=== PATIENT | female | born 1995 | race Caucasian/White ===

== ENCOUNTER 2023-04-14 21:28 | Outpatient (REF) | payer OTHER, SELFPAY ==
[2023-04-22 07:12] LABS: Age Gdln ACOG Testing Note (.); HPV Aptima Negative (Negative); IGP, rfx Aptima HPV ASCU Note (.)
== END 2023-04-14 21:29 | disposition home or self-care (01) ==
LOC: LAB 21:28
PROVIDERS: PCP Internal Medicine; Visit Provider Obstetrics & Gynecology
DX: Z01.419 Encounter for gynecological examination (general) (routine) without abnormal findings (principal)
CPT/HCPCS: G0145

== ENCOUNTER 2023-12-06 02:15 | Emergency (ER) | payer OTHER, SELFPAY ==
[2023-12-06 05:59] LABS: Internal Control Within Normal Limits; Strep A Antigen Screen Negative
== END 2023-12-06 03:45 | disposition home or self-care (01) ==
LOC: ER 05:44
PROVIDERS: Emergency Provider Internal Medicine; PCP Internal Medicine
DX: J02.9 Acute pharyngitis, unspecified (principal)
CPT/HCPCS: 87070; 87880; 99283

== ENCOUNTER 2024-04-19 20:07 | Outpatient (REF) | payer OTHER, SELFPAY ==
[2024-04-22 14:10] LABS: Age Gdln ACOG Testing Note (.); IGP, rfx Aptima HPV ASCU Note (.)
== END 2024-04-19 20:08 | disposition home or self-care (01) ==
LOC: LAB 20:07
PROVIDERS: PCP Internal Medicine; Visit Provider Obstetrics & Gynecology
DX: Z01.419 Encounter for gynecological examination (general) (routine) without abnormal findings (principal)
CPT/HCPCS: 88175

== ENCOUNTER 2025-04-27 14:46 | Outpatient (REF) | payer OTHER, SELFPAY ==
--- OUTSIDE RECORDS SUMMARY | 2025-04-27 18:54 | XMS_ITS | CCD ---
Author Organization [facility] Care Team Providers Care Plugger Name Role Phone FAWWAD, STEWART H Admitting Unavailable FAWWAD, STEWART H Attending Unavailable FAWWAD, STEWART H Primary Care Unavailable FAWWAD, STEWART H Consulting Unavailable FAWWAD, STEWART H Primary Care Unavailable VANDANA .EDOUARD Admitting Unavailable VANDANA .EDOUARD Attending Unavailable BILLIE ., DESIREE JUAREZ Consulting Unavailabl e CHRISTI ., DR GOETZ Admitting Unavailable CHRISTI ., DR GOETZ Attending Unavailable FAWWAD, STEWART H Primary Care Unavailable CHRISTI ., DR GOETZ Consulting Unavailable FAWWAD, STEWART H Admitting Unavailable FAWWAD, STEWART H Attending Unavailable FAWWAD, STEWART H Primary Care Unavailable FAWWAD, STEWART H Consulting Unavailable FAWWAD, STEWART H Admitting Unavailable FAWWAD, STEWART H Attending Unavailable FAWWAD, STEWART H Primary Care Unavailable FAWWAD, STEWART H Consulting Unavailable Fawwad Shaikh FELIX Primary Care Provider ALECIA WARREN Attending Unavailable BISHNU BARRAZA Attending Unavailable Shaikh Vazquez MD Primary Care Provider NIKKY PEDERSEN Attending Unavailable JADASHANICE R Referring Unavailable JADA, SHANICE R Primary Care Unavailable JADA, SHANICE R Primary Care Unavailable OSIRIS VOGEL Attending Unavailable JADA, SHANICE R Primary Care Unavailable NIKKY PEDERSEN Attending Unavailable JADA, SHANICE R Referring Unavailable JADA, SHANICE R Primary Care Unavailable Kelly FELIX, Kaushik Unavailable Unallocated , Noms Provider Primary Care Provi natty Allergies Allergy Classification Reported Allergen(s) Allergy Type Date of Onset Reaction(s) Facility (1 source) lloyd allergenic extract Drug Allergy [facility] Repository Medications Current Medications Medication Drug Class(es) Dates Sig (Normalized) Sig (Original) [id number] 200 actuat albuterol 0.09 mg/actuat metered dose inhaler (13 sources) beta2-Adrenergic Agonist Start: 11-10-2024 take 1 puff(s) by inhalation every four to six hours as needed Albuterol Sulfate 90 mcg/actuation HFA aerosol inhaler Active 2 PUFF INHALATION EVERY 4-6 HOURS as needed November 10, 2024 12:00am Start: 10-09-2023 End: 11-08-2023 take 2 puff(s) by inhalation every six hours for wheezing albuterol HFA 90 mcg/act inhaler Indications: Mild persistent asthma, unspecified whether complicated (HCC) Inhale 2 puffs every 6 (six) hours if needed for wheezing 18 g 1 10/09/2023 Active End: 10-09-2023 take 2 puff(s) by inhalation every four hours for wheezing albuterol HFA 90 mcg/act inhaler Inhale 2 puffs every 4 (four) hours if needed for wheezing 0 10/09/2023 Discontinued (Reorder) amoxicillin 875 mg / clavulanate 125 mg oral tablet (1 source) Penicillin-class Antibacterial Start: 11-10-2024 take 1 tablet by mouth every twelve hours Amoxicillin-Pot Clavulanate 875-125 mg tablet Active 1 TAB PO Every 12 hours 20 10 November 10, 2024 12:00am benzonatate 100 mg oral capsule (2 sources) Non-narcotic Antitussive Start: 10-09-2023 End: 10-16-2023 take 1 capsule by mouth three times daily as needed for cough benzonatate (Tessalon Perles) 100 MG capsule Indications: Subacute cough Take 1 capsule (100 mg) by mouth 3 (three) times a day as needed for cough for up to 7 days Take with full glass of water . Do not crush or chew. 21 capsule 0 10/09/2023 10/16/2023 Active copper 313 mg drug implant (10 sources) Copper-containing Intrauterine Device copper (Paragard) IUD 1 each by Intrauterine route 1 (one) time. Active drospirenone 3 mg / ethinyl estradiol 0.03 mg oral tablet (12 sources) Progestin, Estrogen Start: 04-27-2025 End: 07-26-2025 drospirenone-ethinyl estradiol (Ailin, Ocella) 3-0.03 MG tablet Indications: Well woman exam with routine gynecological exam , control counseling Take 1 tablet by mouth Daily 90 tablet 3 04/27/2025 07/26/2025 Active Start: 10-09-2022 drospirenone-e thinyl estradiol (Ailin, Ocella) 3-0.03 MG tablet Take 1 tablet by mouth in the morning. 10/09/2022 Active fluticasone propionate 0.05 mg/actuat metered dose nasal spray (10 sources) Corticosteroid take 2 spray(s) nasal route in the morning fluticasone (Flonase) 50 MCG/ACT nasal spray Administer 2 sprays into each nostril in the morning. Shake gently. Before first use, prime pump. After use, clean tip and replace cap.. Active hydrOXYzine pamoate 25 mg oral capsule (11 sources) Antihistamine Start : 09-26 take 1 capsule by mouth three times daily as needed hydrOXYzine pamoate (Vistaril) 25 MG capsule Take 25 mg by mouth 3 (three) times a day as needed. 09/26/2022 Active lamoTRIgine 200 mg oral tablet (11 sources) Mood Stabilizer, Anti-epileptic Agent Start : 04-02 take 1 tablet by mouth in the morning lamoTRIgine (LaMICtal) 200 MG tablet Take 200 mg by mouth in the morning. 04/02/2023 Active methylPREDNISolone (2 sources) Corticosteroid Start : 10-09 End: 10-16 methylPREDNISolone (Medrol Dospak) 4 MG tablets Indications: Mild persistent asthma, unspecified whether complicated (CMS/HCC) Take with food. Follow schedule on package instructions 21 tablet 0 10/09/2023 10/16/2023 Active 24 hr QUEtiapine 200 mg extended release oral tablet (11 sources) Atypical Antipsychotic Start : 11-10 take 1 tablet by mouth once daily Quetiapine 200 mg tablet extended release 24 hr Active 200 MG PO Daily November 10, 2024 12:00am Start: 04-02-2023 take 1 tablet by magdy th every twenty-four hours at bedtime QUEtiapine XR (SEROquel XR) 200 MG 24 hr tablet Take 200 mg by mouth at bedtime. 04/02/2023 Active sertraline 100 mg oral tablet (11 sources) Serotonin Reuptake Inhibitor Start: 04-02-2023 take 1 tablet by mouth in the morning sertraline (Zoloft) 100 MG tablet Take 100 mg by mouth in the morning. 04/02/2023 Active Problems Active Problems Problem Classification Problem Date Documented Da te Episodic/Chronic Abdominal pain (2 sources) Pain in female pelvis; Translations: [Pelvic and perineal pain] 04-27-2025 Episodic Anxiety disorders (16 sources) Other specified anxiety disorders; Translations: [Mixed anxiety and depressive disorder] Onset: 12-26-2021 Chronic Asthma (17 sources) Mild persistent asthma, uncomplicated; Translations: [Mild persistent asthma] Onset: 01-17-2022 Chronic Contraceptive and procreative management (2 sources) Patient encounter status; Translations: [Encounter for other general counseling and advice on contraception] 04-27-2025 Episodic Mood disorders (13 sources) Bipolar II disorder; Translations: [Bipolar II disorder] Onset: 12-27-2021 10-09-2023 Chronic Other lower respiratory disease (9 sources) Cough; Translations: [Subacute cough] Onset: 10-09-2023 10-09-2023 Episodic Other nutritional; endocrine; and metabolic disorders (12 sources) Body mass index 30+ - obesity; Translations: [Obesity, unspecified] Onset: 10-09-2023 10-09-2023 Chronic Other upper respiratory infections (7 sources) Acute pharyngitis, unspecified; Translations: [Streptococcal pharyngitis] Onset: 11-14-2022 Episodic Unclassified (1 source) Cough, unspecified; Translations: [Cough, unspecified] Onset: 12-04-2024 Unclassified (1 source) Medical Screening Onset: 09-01-2024 Unclassified (1 source) Infection Onset: 09-01-2024 Past or Other Problems Problem Classification Problem Date Documented Date Episodic/Chronic Cancer of cervix (10 sources) Low grade squamous intraepithelial lesion on cervical Papanicolaou smear; Translations: [Low grade squamous intraepithelial lesion on cytologic smear of cervix (LGSIL)] Onset: 10-09-2023 10-09-2023 Episodic Cardiac dysrhythmias (4 sources) Tachycardia, unspecified; Translations: [TACHYCARDIA UNSPECIFIED] Onset: 03-28-2022 Episodic Immunizations and screening for infectious disease (1 source) Encounter for screening for human papillomavirus (HPV); Translations: [ENC SCREENING HUMAN PAPILLOMAVIRUS] Onset: 04-09-2022 Episodic Other lower respiratory disease (3 sources) Cough; Translations: [Subacute cough] Onset: 10-09-2023 10-09-2023 Episodic Other screening for suspected conditions (not mental disorders or infectious disease) (4 sources) Encounter for screening for malignant neoplasm of cervix; Translations: [ENC SCREENING MALIG NEOPLASM CERV] Onset: 04-08-2022 Episodic Ovarian cyst (1 source) Unspecified ovarian cyst, right side; Translations: [Unspecified ovarian cyst, right side] Onset: 09-01-2024 Episodic Residual codes; unclassified (10 sources) Insomnia; Translations: [Insomnia, unspecified] Onset: 10-09-2023 10-09-2023 Episodic Skin and subcutaneous tissue infections (1 source) Cellulitis of umbilicus; Translations: [Cellulitis of umbilicus] Onset: 09-01-2024 Episodic Results Test Name Value Interpretation Reference Range Facility RESP [id number] 12-04-2024 Respiratory pathogens DNA and RNA panel KINGSLEY+non-probe (Nph) SPECIMEN SOURCE NASO PHARYNX ADENOVIRUS Not detected (qualifier value) CORONAVIRUS 229E Not detected (qualifier value) CORONAVIRUS HKU1 Not detected (qualifier value) CORONAVIRUS NL63 Not detected (qualifier value) CORONAVIRUS OC43 Not detected (qualifier value) HUMAN METAPNEUVIRUS Not detected (qualifier value) RHINO/ENTEROVIRUS Not detected (qualifier value) INFLUENZA A Not detected (qualifier value) INFLUENZA B Not detected (qualifier value) PARAINFLUENZA 1 Not detected (qualifier value) PARAINFLUENZA 2 Not detected (qualifier value) PARAINFLUENZA 3 Not detected (qualifier value) PARAINFLUENZA 4 Not detected (qualifier value) RESP SYNCYTIAL VIRUS Detected (qualifier value) BORD PARAPERTUSSIS Not detected (qualifier value) BORDETELLA PERTUSSIS Not detected (qualifier value) CHLAM.PNEUMONIAE Not detected (qualifier value) MYCO. PNEUMONIAE Not detected (qualifier value) SARS CoV 2 Not detected (qualifier value) NOTE The BioFire Respiratory Panel 2.1 (RP2.1) is a multiplexed nucleic acid test intended for the simultaneous qualitative detection and differentiation of nucleic acid from multiple viral and bacterial respiratory organisms, including nucleic acid from Severe Acute Respiratory Syndrome Coronavirus 2 (SARS-CoV-2), in nasopharyngeal swabs obtained from individuals suspected of COVID-19 by their healthcare provider. Testing is limited to laboratories certified under the Clinical Laboratory Improvement Amendments of 1988 (CLIA), to perform high complexity or moderate complexity tests. SARS-CoV-2 RNA and nucleic acids from the other respiratory viral and bacterial organisms identified by this test are generally detectable in nasopharyngeal swabs during the acute phase of infection. The detection and identification of specific viral and bacterial nucleic acids from individuals exhibiting signs and/or symptoms of respiratory infection is indicative of the presence of the identified microorganism and aids in the diagnosis of respiratory infection if used in conjunction with other clinical and epidemiological information. Positive results are indicative of the presence of the identified organism, but do not rule out co-infection with other pathogens. The agent(s) detected by the BioFire RP2.1 may not be the definite cause of disease and clinical correlation with patient history and other diagnostic information is necessary to determine patient infection status. Negative results in the setting of a respiratory illness may be due to infection with pathogens not detected by this test, or lower respiratory tract infection that may not be detected by a nasopharyngeal specimen. Negative results do not preclude SARS-CoV-2 infection and should not be used as the sole basis for patient management decisions. Negative FRIDA-CoV-2 results must be combined with clinical observations, patient history and epidemiological information. Negative results for other organisms identified by the test may require additional laboratory testing when evaluating a patient with possible respiratory tract infection. Normal [facility] Comment on above: Performed By: #### 8 2159-5 #### [facility] ([id number]) [address] [facility], [place] [address] [facility] ([id number]) [address] [place] [address] XR CHEST 2 Son 12-04-2024 XR CHEST 2 VWS XR CHEST 2 VWS XR CHEST 2 VWS 12/04/2024 6:08 PM INDICATION: cough, chest pain, smoker COMPARISON: X-ray chest 01/17/2024 TECHNIQUE: PA upright and lateral radiographic view(s) obtained. FINDINGS: Lines/Tubes/Devices: None. Respiratory: No pneumothorax, pleural effusion, or focal consolidation. Cardiomediastinum: Nonenlarged silhouette. IMPRESSION: * No acute pulmonary process. Approved by Resident: Noel Winters MD on 12/04/2024 6:17 PM I, Broderick Cerda MD have personally reviewed the image(s) and agree with and/or edited the report Finalized by Broderick Cerda MD on 12/04/2024 6:19 PM Normal [facility] CBC AND AUTO DIFFon 09-01-19 ABSOLUTE BASOPHIL 0.1 X10E9/L Normal 0.0-0.2 [facility] Comment on above: Performed By: #### Mariama ARENAS [facility], 1987-12 #### [facility] ([id number]) [address] [place] [address] 34784 ABSOLUTE NEUTROPHIL 7.6 X10E9/L High 1.5-6.6 [facility] Comment on above: Performed By: #### Mariama ARENAS [facility], 1987-12 #### [facility] ([id number]) [address] [place] [address] 83133 Basophils/100 WBC (Bld) 0.8 % Normal [facility] Comment on above: Performed By: #### Mariama ARENAS [facility], 1987-12 #### [facility] ([id number]) [address] [place] [address] 86632 Eosinophils (Bld) [#/Vol] 0.2 10*3/uL Normal 0.0-0.4 [facility] Comment on above: Performed By: #### Mariama ARENAS [facility], 1986-12 #### [facility] ([id number]) [address] [place] [address] 22360 Eosinophils/100 WBC (Bld) 1.5 % Normal [facility] Comment on above: Performed By: #### Mariama ARENAS [facility], 1986-12 #### [facility] ([id number]) [address] [place] [address] 44556 Erythrocyte distribution width (RBC) [Ratio] 14.3 % Normal 11.5-15.0 [facility] Comment on above: Performed By: #### Mariama ARENAS [facility], 1987-12 #### [facility] ([id number]) [address] [place] [address] 04774 Hematocrit (Bld) [Volume fraction] 39.0 % Normal 35-47 [facility] Comment on above: Performed By: #### Mariama ARENAS [facility], 1987-12 #### [facility] ([id number]) [address] [place] [address] 19680 Hemoglobin (Bld) [Mass/Vol] 13.1 g/dL Normal 11.7-15.5 [facility] Comment on above: Performed By: #### Mariama ARENAS [facility], 1987-12 #### [facility] ([id number]) [address] [place] [address] 95933 Lymphocytes (Bld) [#/Vol] 3.0 10*3/uL Normal 1.0-3.5 [facility] Comment on above: Performed By: #### Mariama ARENAS [facility], 1987-12 #### [facility] ([id number]) [address] [place] [address] 93684 Lymphocytes/100 WBC (Bld) 25.8 % Normal [facility] Comment on above: Performed By: #### Mariama ARENAS [facility], 1987-12 #### [facility] ([id number]) [address] [place] [address] 80651 MCH (RBC) [Entitic mass] 27.3 pg Normal 27-34 [facility] Comment on above: Performed By: #### Mariama [facility]NAS [facility], 1987-12 #### [facility] ([id number]) [address] [place] [address] 02079 MCHC (RBC) [Mass/Vol] 33.6 g/dL Normal 32-36 [facility] Comment on above: Performed By: #### Mariama ARENAS [facility], 1987-12 #### [facility] ([id number]) [address] [place] [address] 54704 MCV (RBC) [Entitic vol] 81 fL Normal 80-100 [facility] Comment on above: Performed By: #### Mariama [facility]NAS [facility], 1987-12 #### [facility] ([id number]) [address] [place] [address] 57654 Monocytes (Bld) [#/Vol] 0.7 10*3/uL Normal 0-0.9 [facility] Comment on above: Performed By: #### Mariama ARENAS [facility], 1987-12 #### [facility] ([id number]) [address] [place] [address] 25510 Monocytes/100 WBC (Bld) 6.1 % Normal [facility] Comment on above: Performed By: #### Mariama [facility]NAS [facility], 1987-12 #### [facility] ([id number]) [address] [place] [address] 63988 Neutrophils/100 WBC (Bld) 65.8 % Normal [facility] Comment on above: Performed By: #### Mariama [facility]NAS [facility], 1987-12 #### [facility] ([id number]) [address] [place] [address] 47002 Platelet mean volume (Bld) [Entitic vol] 9.4 fL Normal 7-12 [facility] Comment on above: Performed By: #### Mariama [facility]NAS [facility], 1987-12 #### [facility] ([id number]) [address] [place] [address] 32904 Platelets (Bld) [#/Vol] 311 10*3/uL Normal 150-450 [facility] Comment on above: Performed By: #### Mariama ARENAS [facility], 1987-12 #### [facility] ([id number]) [address] [place] [address] 28830 RBC COUNT 4.80 X10E12/L Normal 3.80-5.20 [facility] Comment on above: Performed By: #### C DAGOBERTO [facility], 1987-12 #### [facility] ([id number]) [address] [place] [address] 08513 WBC (Bld) [#/Vol] 11.5 10*3/uL High 4.0-11.0 [facility] Comment on above: Performed By: #### Mariama ARENAS [facility], 1987-12 #### [facility] ([id number]) [address] [place] [address] 24556 COMPREHENSIVE METABOLIC PANE Nghia 09-01-2024 Albumin [Mass/Vol] 4.2 g/dL Normal 3.2-5.3 [facility] Comment on above: Performed By: #### Mariama ARENAS [facility], 1987-12 #### [facility] ([id number]) [address] [place] [address] 45191 ALP [Catalytic activity/Vol] 68 U/L Normal 39-130 [facility] Comment on above: Performed By: #### Mariama ARENAS [facility], 1987-12 #### [facility] ([id number]) [address] [place] [address] 53681 ALT [Catalytic activity/Vol] 13 U/L Normal 0-31 [facility] Comment on above: Performed By: #### Mariama ARENAS [facility], 1987-12 #### [facility] ([id number]) [address] [place] [address] 61378 Anion gap [Moles/Vol] 9 mmol/L Normal 5-15 [facility] Comment on above: Performed By: #### C SANDOVAL ARENAS, 1986-12 #### [facility] ([id number]) [address] [place] [address] 43615 AST [Catalytic activity/Vol] 22 U/L Normal 0-41 [facility] Comment on above: Performed By: #### C DAGOBERTO [facility], 1987-12 #### [facility] ([id number]) [address] [place] [address] 16032 Bilirubin [Mass/Vol] 0.3 mg/dL Normal 0.3-1.2 [facility] Comment on above: Performed By: #### C DAGOBERTO [facility], 1987-12 #### [facility] ([id number]) [address] [place] [address] 19297 Calcium [Mass/Vol] 8.7 mg/dL Normal 8.5-10.5 [facility] Comment on above: Performed By: #### C DAGOBERTO [facility], 1987-12 #### [facility] ([id number]) [address] [place] [address] 24564 Chloride [Moles/Vol] 105 mmol/L Normal 98-109 [facility] Comment on above: Performed By: #### Mariama ARENAS [facility], 1987-12 #### [facility] ([id number]) [address] [place] [address] 81691 CO2 [Moles/Vol] 23 mmol/L Normal 22-32 [facility] Comment on above: Performed By: #### Mariama ARENAS CMP, 1987-12 #### [facility] ([id number]) [address] [place] [address] 64835 Creatinine [Mass/Vol] 0.66 mg/dL Normal 0.40-1.00 [facility] Comment on above: Result Comment: METH OD TRACEABLE TO IDMS STANDARD Performed By: #### C SANDOVAL ARENAS, 1987-12 #### [facility] ([id number]) [address] [place] [address] 87611 eGFR (CKD-EPI) NON-RACE DEPENDENT >90 Normal >59 [facility] Comment on above: Result Comment: Reported eGFR is based on the CKD-EPI 2020 equation that does not use a race coefficient. Performed By: #### C DAGOBERTO [facility], 1987-12 #### [facility] ([id number]) [address] [place] [address] 21992 Glucose [Mass/Vol] 94 mg/dL Normal 65-99 [facility] Comment on above: Performed By: #### Mariama ARENAS [facility], 1987-12 #### [facility] ([id number]) [address] [place] [address] 13990 Potassium [Moles/Vol] 4.0 mmol/L Normal 3.5-5.0 [facility] Comment on above: Performed By: #### Mariama ARENAS [facility], 1987-12 #### [facility] ([id number]) [address] [place] [address] 95010 Protein [Mass/Vol] 7.4 g/dL Normal 6.0-8.0 [facility] Comment on above: Performed By: #### Mariama ARENAS [facility], 1987-12 #### [facility] ([id number]) [address] [place] [address] 94025 Sodium [Moles/Vol] 137 mmol/L Normal 134-146 [facility] Comment on above: Performed By: #### Mariama ARENAS [facility], 1987-12 #### [facility] ([id number]) [address] [place] [address] 51260 Urea nitrogen [Mass/Vol] 10 mg/dL Normal 5-23 [facility] Comment on above: Performed By: #### Mariama ARENAS [facility], 1987-12 #### [facility] ([id number]) [address] [place] [address] CRP [Mass/Vol]on 09-01-2024 C REACTIVE PROTEIN 0.7 mg/dL Normal 0.000-0.744 [facility] Comment on above: Performed By: #### C BCA, [facility], 1987- #### [facility] ([id number]) [address] [place] [address] CT ABDOMEN AND PELVIS W CONT on 09-01-2024 CT ABDOMEN AND PELVIS W CONT CT ABDOMEN AND PELVIS W CONT CT ABDOMEN AND PELVIS W CONT: 09/01/2024 5:27 AM CLINICAL INFORMATION: ; Intra-abdominal abscess COMPARISON: None. Procedure: Standard contrast-enhanced CT of the abdomen and pelvis was performed following intravenous administration of 100 mL Omnipaque 300. Coronal and sagittal reformats were obtained. All CT scans at this facility use dose modulation, iterative reconstruction, and/or weight based dosing when appropriate to reduce radiation dose to as low as reasonably achievable. FINDINGS: The lower chest is normal. The liver, spleen, pancreas, adrenal glands, kidneys, and ureters are normal. The gallbladder is underdistended. Large volume of ingested contents are seen within the stomach. Moderate fecal burden seen throughout the colon. No evidence of obstruction or inflammatory change. The appendix is normal. Fecalization of the distal ileum. No free fluid or free air. Intrauterine contraceptive device likely in appropriate position. Right adnexal cyst measures approximately 3 cm. The abdominal wall is normal. No subcutaneous abscess is identified. No acute osseous abnormalities. IMPRESSION: 1. No acute abdominopelvic abnormalities. No evidence of intra-abdominal abscess or subcutaneous abscess. 2. 3 cm right ovarian cyst. Finalized by Salvador De León on 09/01/2024 6:24 AM Normal [facility] HCG ( test) Ql (U)o n 09-01-2024 Beta HCG ( test) Ql (U) Negative Normal NEG [facility] Comment on above: Performed By: #### 2 106-3 #### [facility] ([id number]) [address] [place] [address] SUPERFICIAL WOUND CULTUREon 09-01-2024 Bacteria identified Aer cx Nom (Wound) GRAM STAIN >25 WHITE BLOOD CELLS/LPF 0 to 1 SQUAMOUS EPITHELIAL CELLS PRESENT FEW GRAM POSITIVE COCCI CULTURE RESULTS RARE NORMAL SKIN YULIYA Normal [facility] Comment on above: Performed By: #### 6 32-0 #### [facility] ([id number]) [address] [place] [address] IGP,APTIMA HPV,AGE GDLNon AGE GDLN ACOG TESTING Note . [facility] Comment on above: TESTS RESULT FLAG U NITS REF RANGE LAB Clinician Provided Cytology Information Source.............Cervix;Endocervix No. of containers..01 ThinPrep Vial Age Algo ACOG Malgorzata... FLAG LEGEND: L-Low Normal,H-High Normal,LL-Alert Low,HH-Alert High <-Panic Low,>-Panic High,A-Abnormal,AA-Critical Abnormal Performed at: 01 =G Jona Goodrich[address] [place] [address] Deedee Corcoran MD, IGP, RFX APTIMA HPV ASCU Note . [facility] Comment on above: TESTS RESULT FLAG UN ITS REF RANGE LAB DIAGNOSIS: 02 NEGATIVE FOR INTRAEPITHELIAL LESION OR MALIGNANCY. Specimen adequacy: 02 Satisfactory for evaluation. Endocervical and/or squamous metaplastic cells (endocervical component) are present. Performed by: 02 Lissett Bray, Watermelon Inspector ([facility]) . 02 Note: Note 03 The Pap smear is a screening test designed to aid in the detection of premalignant and malignant conditions of the uterine cervix. It is not a diagnostic procedure and should not be used as the sole means of detecting cervical cancer. Both false-positive and false-negative reports do occur. Test Methodology: Note 03 This liquid based ThinPrep(R) pap test was screened with the use of an image guided system. . 02 The HPV DNA reflex criteria were not met with this specimen result therefore, no HPV testing was performed. FLAG LEGEND: L-Low Normal,H-High Normal,LL-Alert Low,HH-Alert High <-Panic Low,>-Panic High,A-Abnormal,AA-Critical Abnormal Performed at: [address] [place] [address] Eyal Gonzalez PhD, [address] [address] Deedee Corcoran MD, Performed at: = - [address] [id number] Aerial Tram Operator: Deedee Corcoran MD, Phone: [phone] Performed at: [address], [place] [id number] Aerial Tram Operator: Eyal Gonzalez PhD, Phone: [phone] BRUSH[facility]SPATULA CERVIX ENDOCERVIX [facility] STREPT SCREENon 11-14-2022 STREP SCREEN A Positive Abnormal NEGATIVE [facility] Comment on above: Performed By: #### S SCRN #### [facility] [address] [place] [address] Dr. Leeann Sosa PAP ACOG PANEL 2: 21 to 29on 04-12-2022 . . Normal [facility] Comment on above: Performed By: #### 4 [id number] #### [facility] [address] [place] [address] Dr. Leeann Sosa Age Gdln ACOG Testing - [facility] Comment on above: Performed By: #### 4 [id number] #### [facility] [address] [place] [address] Dr. Leeann Sosa DIAGNOSIS: Comment [facility] Comment on above: Result Comment: NEGA TIVE FOR INTRAEPITHELIAL LESION OR MALIGNANCY. THIS SPECIMEN WAS RESCREENED PART OF OUR BENDING ROLL OPERATOR PROGRAM. Performed By: #### 4 [id number] #### [facility] [address] [place] [address] Dr. Leeann Sosa Methodology: Comment [facility] Comment on above: Result Comment: This liquid based ThinPrep(R) pap test was screened with the use of an image guided system. Performed By: #### 4 [id number] #### [facility] [address] [place] [address] Dr. Leeann Sosa Note: Comment [facility] Comment on above: Result Comment: The Pap smear is a screening test designed to aid in the detection of premalignant and malignant conditions of the uterine cervix. It is not a diagnostic procedure and should not be used as the sole means of detecting cervical cancer. Both false-positive and false-negative reports do occur. . Performed By: #### 4 [id number] #### [facility] [address] [place] [address] Dr. Leeann Sosa Performed by: Comment [facility] Comment on above: Result Comment: Chri mine Hay, Watermelon Inspector (ASCP) Performed By: #### 4 [id number] #### [facility] [address] [place] [address] Dr. Leeann Sosa QC reviewed by: Comment Normal [facility] Comment on above: Result Comment: Mikayla Garcia, Supervisory Watermelon Inspector (ASCP) Performed By: #### 4 [id number] #### [facility] [address] [place] [address] Dr. Leeann Sosa Reflex Criteria: Comment Normal [facility] Comment on above: Result Comment: The HPV DNA reflex criteria were not met with this specimen result therefore, no HPV testing was performed. . Performed By: #### 4 [id number] #### [facility] [address] [place] [address] Dr. Leeann Sosa Specimen adequacy: Comment Normal [facility] Comment on above: Result Comment: Sati sfactory for evaluation. Endocervical and/or squamous metaplastic cells (endocervical component) are present. Performed By: #### 4 [id number] #### [facility] [address] [place] [address] Dr. Leeann Sosa CBC AUTO DIFFon 12-26-2021 BASO # 0.0 103/ul Normal 0.0-0.[address] [facility] Comment on above: Performed By: #### C BC #### [facility] [address] [place] [address] Dr. Leeann Sosa Basophils/100 WBC (Bld) 0.4 % Normal 0.2-2.[address] [facility] Comment on above: Performed By: #### C BC #### [facility] [address] [place] [address] Dr. Leeann Sosa EO # 0.1 103/ul Normal 0.0-0.[address] [facility] Comment on above: Performed By: #### C BC #### [facility] [address] [place] [address] Dr. Leeann Sosa Eosinophils/100 WBC (Bld) 1.4 % Normal 0.9-7.[address] [facility] Comment on above: Performed By: #### C BC #### [facility] [address] [place] [address] Dr. Leeann Sosa Erythrocyte distribution width (RBC) [Ratio] 17.8 % Critically high 11.0-15.[address] [facility] Comment on above: Performed By: #### C BC #### [facility] [address] [place] [address] Dr. Leeann Sosa Hematocrit (Bld) [Volume fraction] 38.4 % Normal 36.0-48.[address] [facility] Comment on above: Performed By: #### C BC #### [facility] [address] [place] [address] Dr. Leeann Sosa Hemoglobin (Bld) [Mass/Vol] 11.5 g/dL Critically low 12.0-16.[address] [facility] Comment on above: Performed By: #### C BC #### [facility] [address] [place] [address] Dr. Leeann Sosa IG # 0.03 10e3/ul Normal 0.00-0.[address] [facility] Comment on above: Performed By: #### C BC #### [facility] [address] [place] [address] Dr. Leeann Sosa IG % 0.3 % Normal 0.0-0.[address] [facility] Comment on above: Performed By: #### C BC #### [facility] [address] [place] [address] Dr. Leeann Sosa LYMPH # 2.7 103/ul Normal 1.2-3.[address] [facility] Comment on above: Performed By: #### C BC #### [facility] [address] [place] [address] Dr. Leeann Sosa Lymphocytes/100 WBC (Bld) 29.5 % Normal 20.5-60.[address] [facility] Comment on above: Performed By: #### C BC #### [facility] [address] [place] [address] Dr. Leeann Sosa MANUAL DIFF REQ NO Normal [facility] Comment on above: Performed By: #### C BC #### [facility] [address] [place] [address] Dr. Leeann Sosa MCH (RBC) [Entitic mass] 22.8 pg Critically low 26.7-34.0 [facility] Comment on above: Performed By: #### C BC #### [facility] [address] [place] [address] Dr. Leeann Sosa MCHC (RBC) [Mass/Vol] 29.9 g/dL Normal 29.9-35.2 [facility] Comment on above: Performed By: #### C BC #### [facility] [address] [place] [address] Dr. Leeann Sosa MCV (RBC) [Entitic vol] 76.2 fL Critically low 81.0-99.[address] [facility] Comment on above: Performed By: #### C BC #### [facility] [address] [place] [address] Dr. Leeann Sosa MONO # 0.6 103/ul Normal 0.3-0.[address] [facility] Comment on above: Performed By: #### C BC #### [facility] [address] [place] [address] Dr. Leeann oSsa Monocytes/100 WBC (Bld) 6.5 % Normal 1.7-12.[address] [facility] Comment on above: Performed By: #### C BC #### [facility] [address] [place] [address] Dr. Leeann Sosa NEUT # 5.7 103/ul Normal 1.4-6.5 [facility] Comment on above: Performed By: #### C BC #### [facility] [address] [place] [address] Dr. Leeann Sosa Neutrophils/100 WBC (Bld) 61.9 % Normal 43.0-75.0 [facility] Comment on above: Performed By: #### C BC #### [facility] [address] [place] [address] Dr. Leeann Sosa Platelet mean volume (Bld) [Entitic vol] 11.4 fL Normal 9.5-13.5 [facility] Comment on above: Performed By: #### C BC #### [facility] [address] [address] [address] Leeann Sosa PLT 395 103/ul Normal 150-[address] [facility] Comment on above: Performed By: #### C BC #### [facility] [address] [place] [address] Dr. Leeann Sosa RBC 5.04 106/ul Normal 4.20-5.[address] [facility] Comment on above: Performed By: #### C BC #### [facility] [address] [place] [address] Dr. Leeann Sosa WBC 9.1 103/ul Normal 4.0-11.[address] [facility] Comment on above: Performed By: #### C BC #### [facility] [address] [place] [address] Dr. Leeann Sosa PROF 14(COMP METB)on 022 Albumin [Mass/Vol] 3.1 g/dL Critically low 3.4-5.0 [facility] Comment on above: Performed By: #### T SH, CMP #### [facility] [address] [place] [address] Dr. Leeann Sosa Albumin/Globulin [Mass ratio] 0.7 {ratio} Normal [facility] Comment on above: Performed By: #### T SH, CMP #### [facility] [address] [place] [address] Dr. Leeann Sosa ALP [Catalytic activity/Vol] 76 U/L Normal 46-116 [facility] Comment on above: Performed By: #### T SH, CMP #### [facility] [address] [place] [address] Dr. Leeann Sosa ALT [Catalytic activity/Vol] 37 U/L Normal 14-[address] [facility] Comment on above: Performed By: #### T SH, CMP #### [facility] [address] [place] [address] Dr. Leeann Sosa Anion gap [Moles/Vol] 8.2 mmol/L Normal [facility] Comment on above: Performed By: #### T SH, CMP #### [facility] [address] [place] [address] Dr. Leeann Sosa AST [Catalytic activity/Vol] 18 U/L Normal 15-[address] [facility] Comment on above: Performed By: #### T SH, CMP #### [facility] [address] [place] [address] Dr. Leeann Sosa Bilirubin [Mass/Vol] 0.1 mg/dL Critically low 0.2-1.[address] [facility] Comment on above: Performed By: #### T SH, CMP #### [facility] [address] [place] [address] Dr. Leeann Sosa Calcium [Mass/Vol] 8.0 mg/dL Critically low 8.5-10.1 [facility] Comment on above: Performed By: #### T SH, CMP #### [facility] [address] [place] [address] Dr. Leeann Sosa Chloride [Moles/Vol] 104 mmol/L Normal 98-[address] [facility] Comment on above: Performed By: #### T SH, CMP #### [facility] [address] [place] [address] Dr. Leeann Sosa CO2 [Moles/Vol] 26.1 mmol/L Normal 21.0-32.0 [facility] Comment on above: Performed By: #### T SH, CMP #### [facility] [address] [place] [address] Dr. Leeann Sosa Creatinine [Mass/Vol] 0.86 mg/dL Normal 0.55-1.[address] [facility] Comment on above: Performed By: #### T SH, CMP #### [facility] [address] [place] [address] Dr. Leeann Sosa EGFR-AF ICELANDIC >60 Normal >=60 [facility] Comment on above: Performed By: #### T SH, CMP #### [facility] [address] [place] [address] Dr. Leeann Sosa EGFR-NON AF ICELANDIC >60 Normal >=[address] [facility] Comment on above: Performed By: #### T SH, CMP #### [facility] [address] [place] [address] Dr. Leeann Sosa Globulin (S) [Mass/Vol] 4.2 g/dL Normal [facility] Comment on above: Performed By: #### T SH, CMP #### [facility] [address] [address] [address] Leeann Sosa Glucose [Mass/Vol] 82 mg/dL Normal 74-106 [facility] Comment on above: Performed By: #### T SH, CMP #### [facility] [address] [place] [address] Dr. Leeann Sosa Potassium [Moles/Vol] 4.3 mmol/L Normal 3.5-5.[address] [facility] Comment on above: Performed By: #### T OLI, CMP #### [facility] [address] [place] [address] Dr. Leeann Sosa Protein [Mass/Vol] 7.3 g/dL Normal 6.1-8.2 [facility] Comment on above: Performed By: #### T OLI, CMP #### [facility] [address] [place] [address] Dr. Leeann Sosa Sodium [Moles/Vol] 134 mmol/L Critically low 136-145 [facility] Comment on above: Performed By: #### T OLI, CMP #### [facility] [address] [place] [address] Dr. Leeann Sosa Urea nitrogen [Mass/Vol] 7.0 mg/dL Normal 7.0-18.[address] [facility] Comment on above: Performed By: #### T OLI, CMP #### [facility] [address] [place] [address] Dr. Leenan Sosa Urea nitrogen/Creatinine [Mass ratio] 8.1 mg/mg Normal [facility] Comment on above: Performed By: #### T OLI, CMP #### [facility] [address] [place] [address] Dr. Leeann Sosa TSHon 12-26-2021 TSH 1.258 uIU/mL Normal 0.470-4.680 [facility] Comment on above: Performed By: #### T OLI, CMP #### [facility] [address] [address] [address] Leeann Sosa TSH RANGE SEE BELOW Normal [facility] Comment on above: Result Comment: <0.3 4 UIU/ml HYPERTHYROID 0.34-5.60 UIU/ml EUTHYROID >5.60 UIU/ml HYPOTHYROID Performed By: #### T SH, CMP #### [facility] [address] [address] [address] Leeann Sosa Vital Signs Date Time Vital Sign Value Performing Clinician Facility 04-27-2025 13:06-0400 Body mass index (BMI) [Ratio] 37.67 kg/m2 [facility] Work Phone: [facility] 04-27-2025 13:06-0400 Body weight 102.69 kg [facility] Work Phone: [facility] 04-27-2025 13:06-0400 Diastolic blood pressure 70 mm[Hg] [facility] Work Phone: [facility] 04-27-2025 13:06-0400 Systolic blood pressure 110 mm[Hg] [facility] Work Phone: [facility] 11-10-2024 14:18-0400 Body height 165.1 cm [facility] 11-10-2024 14:18-0400 Body mass index (BMI) [Ratio] 35.8 kg/m2 [facility] 11-10-2024 14:18-0400 Body temperature 99.8 [degF] [facility] 11-10-2024 14:18-0400 Body weight 97.57 kg [facility] 11-10-2024 14:18-0400 Diastolic blood pressure 84 mm[Hg] [facility] 11-10-2024 14:18-0400 Heart rate 106 /min [facility] 11-10-2024 14:18-0400 Respiratory rate 16 /min [facility] 11-10-2024 14:18-0400 SaO2% (BldA) [Mass fraction] 98 % [facility] 11-10-2024 14:18-0400 Systolic blood pressure 113 mm[Hg] [facility] 04-19-2024 09:21-0400 Body height 165.1 cm Bishnu Christi DO Work Phone: [facility] 04-19-2024 09:21-0400 Body mass index (BMI) [Ratio] 34.91 kg/m2 Bishnu Christi DO Work Phone: [facility] 04-19-2024 09:21-0400 Body weight 95.17 kg Bishnu Christi DO Work Phone: [facility] 04-19-2024 09:21-0400 Diastolic blood pressure 72 mm[Hg] Bishnu Christi DO Work Phone: [facility] 04-19-2024 09:21-0400 Systolic blood pressure 120 mm[Hg] Bishnu Christi DO Work Phone: [facility] 10-09-2023 18:06-0500 Body height 165.1 cm Alecia Shahidz SCENE AND LIGHTING DESIGN LECTURER Work Phone: [facility] 10-09-2023 18:06-0500 Body mass index (BMI) [Ratio] 33.85 kg/m2 Alecia Shahidz SCENE AND LIGHTING DESIGN LECTURER Work Phone: [facility] 10-09-2023 18:06-0500 Body temperature 97.5 [degF] Alecia Shahidz SCENE AND LIGHTING DESIGN LECTURER Work Phone: [facility] 10-09-2023 18:06-0500 Body weight 92.26 kg Alecia Shahidz SCENE AND LIGHTING DESIGN LECTURER Work Phone: [facility] 10-09-2023 18:06-0500 Diastolic blood pressure 80 mm[Hg] Alecia Aichholz SCENE AND LIGHTING DESIGN LECTURER Work Phone: [facility] 10-09-2023 18:06-0500 Heart rate 116 /min Alecia Aicjaclynz SCENE AND LIGHTING DESIGN LECTURER Work Phone: [facility] 10-09-2023 18:06-0500 Respiratory rate 18 /min Alecia Marjoriehpiaz SCENE AND LIGHTING DESIGN LECTURER Work Phone: [facility] 10-09-2023 18:06-0500 SaO2% (BldA) [Mass fraction] 97 % Alecia Marjoriekelvinmagdaleno SCENE AND LIGHTING DESIGN LECTURER Work Phone: [facility] 10-09-2023 18:06-0500 Systolic blood pressure 118 mm[Hg] Alecia Grandemagdaleno SCENE AND LIGHTING DESIGN LECTURER Work Phone: [facility] Healthcare Encounters Encounter Date Encounter Type Care Provider Facility Start: 04-27-2025 End: 04-27-2025 Bamboo flowsheet Bishnu Christi DO Work Phone: [facility] Start: 04-27-2025 End: 04-27-2025 Bamboo flowsheet Bishnu Christi DO Work Phone: [facility] Start: 04-27-2025 End: 04-27-2025 Patient encounter procedure Bishnu Christi DO Work Phone: [facility] Work Phone: Start: 04-27-2025 End: 04-27-2025 Periodic preventive med est patient 18-39 yrs Bishnu Christi DO Work Phone: [facility] Comment on above: Pelvic pain in femal e (Primary Dx); Well woman exam with routine gynecological exam; control counseling Start: 02-03-2025 End: 02-03-2025 ambulatory NIKKY PEDERSEN [facility] Start: 12-04-2024 End: 12-04-2024 Emergency department patient visit [facility] Start: 11-10-2024 End: 11-10-2024 ambulatory [facility] Work Phone: Start: 11-10-2024 End: 11-10-2024 Patient encounter procedure [facility] Work Phone: Start: 09-01-2024 End: 09-01-2024 Emergency department patient visit [facility] Start: 07-27-2024 End: 07-27-2024 ambulatory NIKKY PEDERSEN [facility] Start: 04-19-2024 End: 04-19-2024 Bamboo flowsheet Bishnu Christi DO Work Phone: [facility] Start: 04-19-2024 End: 04-22-2024 Bamboo flowsheet Bishnu Christi DO Work Phone: [facility] Start: 04-19-2024 End: 04-22-2024 Clinisync Result Encounter Bishnu Christi DO Work Phone: [facility] Unsolicited Start: 04-19-2024 End: 04-19-2024 ambulatory BISHNU CHRISTI Not Available Start: 04-19-2024 End: 04-19-2024 Patient encounter procedure Bishnu Christi DO Work Phone: [facility] Work Phone: Start: 04-19-2024 End: 04-19-2024 Periodic preventive med est patient 18-39 yrs Bishnu Christi DO Work Phone: [facility] Comment on above: Well woman exam with routine gynecological exam Start: 10-09-2023 End: 10-09-2023 Office outpatient visit 15 minutes Alecia Warren SC[employer] AND L[employer]ING DESIGN LECTURER Work Phone: [facility] Comment on above: Mild persistent asth ma, unspecified whether complicated (CMS/HCC) (Primary Dx); Obesity (BMI 30-39.9); Subacute cough Start: 10-09-2023 End: 10-09-2023 ambulatory ALECIA BRIANA Not Available Start: 10-09-2023 Bamboo flowsheet Alecia Briana SCENE AND LIGHTING DESIGN LECTURER Work Phone: [facility] Start: 10-09-2023 Bamboo flowsheet Alecia Briana SCENE AND LIGHTING DESIGN LECTURER Work Phone: [facility] Start: 11-14-2022 End: 11-14-2022 ambulatory SHAIKH Kelvin VAZQUEZ Facility: Start: 04-08-2022 End: 04-08-[address] BISHNU BARRAZA . Facility: Start: 03-28-2022 End: 03-29-2022 ambulatory [facility] Facility: Start: 01-17-2022 End: 01-18-2022 ambulatory [facility] Facility: Start: 12-26-2021 End: 12-27-2021 ambulatory [facility] Facility: Procedures Date Procedure Procedure Detail Performing Clinician Start: 04-19-2024 IGP,APTIMA HPV,AGE GDLN Generic External Data Provider Plan of Treatment Date Care Activity Detail Author Start: 05-04-2026 End: 05-04-2026 Patient encounter procedure 05/04/2026 10:00 AM EDT Procedure Visit [facility] [address] [place] [id number] Bishnu Barraza, [address] [place] [address] [facility] Start: 05-05-2025 End: 05-05-2025 Professional / ancillary services management 05/05/2025 9:00 AM EDT Ancillary Procedure [facility] [address] [place] [id number] [facility] Start: 04-27-2025 End: 10-25-2025 US Pelvis US Pelvis w/ TV Imaging Routine Pelvic pain in female Expected: 04/27/2025, Expires: 10/25/2025 [facility] Comment on above: Expected: 04/27/2025 , Expires: 10/25/2025 Start: 04-27-2025 End: 04-27-2025 Patient encounter procedure [facility] Comment on above: Arrived Start: 04-19-2024 End: 04-19-2024 Patient encounter procedure 04/19/2024 9:00 AM EDT Office Visit [facility] [address] [place] [id number] Bishnu Barraza, [address] [place] [address] [facility] Start: 10-09-2023 End: 10-09-2023 Patient encounter procedure 10/09/2023 6:00 PM EST Office Visit [facility] [address] [place] [address] Alecia Warren, JULIET [address] [place] [address] Arrived [facility] Comment on above: Arrived Start: 04-25-2023 Influenza vaccination Influenza Vacc ine (#1) [facility] Cervical or vaginal smear or scraping study Pap Smear Pathology and Cytology Routine Well woman exam with routine gynecological exam Ordered: 04/19/2024 [facility] Work Phone: Comment on above: Ordered: 04/19/2024 Cytology Cervical or vaginal smear or scraping study Pap Smear Pathology and Cytology Routine Well woman exam with routine gynecological exam Ordered: 04/27/2025 [facility] Work Phone: Comment on above: Ordered: 04/27/2025 Immunizations Immunization Date Immunization Notes Care Provider Fa [facility] 07-30-2017 influenza virus vacc ine, unspecified formulation Alecia Warren NP Work Phone: [facility] Payers Date Payer Category Payer Medicaid [id number] 2015 Medicaid (Managed Care) JACKELINE GARCIA [id number] 1996 Unknown [id number]. 593 1996 Unknown [id number] [id number]. 593 1996 Unknown [id number] [id number]. 593 1996 Unknown [id number] [id number]. 593 1996 Unknown [id number] [id number]. 593 1996 Unknown [id number] [id number]. 1259 1996 Unknown [id number] [id number]. 1259 1996 Unknown [id number] [id number]. 1286 1996 Unknown [id number] [id number]. 1286 1996 Unknown [id number] [id number]. 1286 1996 Unknown [id number]. 1286 1959 Unknown [id number] Social History Date Type Detail Facility Start: 04-09-2023 End: 11-10-2024 Tobacco smoking status [facility] Never smoked tobacco [facility] Start: 04-09-2023 Tobacco use and exposure Smokeless tobacco non-user [facility] Start: 10-08-2023 End: 04-27-2025 Alcohol intake Current drinker of alcohol (finding) [facility] Start: 10-07-2023 End: 10-09-2023 History of Social function [facility] Start: 10-07-2023 End: 10-09-2023 Humiliation, Afraid, Rape, and Kick questionnaire [HARK] [facility] Start: 04-13-2023 Within the last year, have you been afraid of your partner or ex-partner? Patient declined [facility] Within the last year , have you been kicked, hit, slapped, or otherwise physically hurt by your partner or ex-partner? No [facility] Are you now , , , , never or living with a partner? Never [facility] How often to you hav e a drink containing alcohol? 2-4 times a month [facility] How many standard dr inks containing alcohol do you have on a typical day? 3 or 4 [facility] How often do you hav e 6 or more drinks on 1 occasion? Monthly [facility] Do you feel stress - tense, restless, nervous, or anxious, or unable to sleep at night because your mind is troubled all the time - these days [OSQ] To some extent [facility] (I/We) worried whesammie er (my/our) food would run out before (I/we) got money to buy more. Never true [facility] Start: 04-09-2023 Alcohol Comment Occasional alcohol use [facility] Start: 1995 Sex Assigned At Female [facility] Start: 04-13-2023 Gender identity Identifies as female gender (finding) [facility] Within the last year , have you been afraid of your partner or ex-partner? Yes [facility] Start: 11-10-2024 Sex Female (finding) [facility] History of Present illness Narrative 04-27-2025 Kirti Frankel NP - 04/27/2025 1:00 PM EDT Note Date & Type Note Facility 04-27-2025 History of Presen t illness Narrative Reason for Appointment: Patient ID: Judy Pérez is a 29 y.o. female who presents for Well Women Visit Patient presents today for Annual Exam. MEDICATIONS Current Outpatient Medications Medication Instructions albuterol HFA 90 mcg/act inhaler 2 puffs, Inhalation, Every 6 hours PRN copper (Paragard) IUD 1 each, Once drospirenone-ethinyl estradiol (Ailin, Ocella) 3-0.03 MG tablet 1 tablet, Daily drospirenone-ethinyl estradiol (Ailin, Ocella) 3-0.03 MG tablet 1 tablet, Oral, Daily fluticasone (Flonase) 50 MCG/ACT nasal spray 2 sprays, Daily hydrOXYzine pamoate (VISTARIL) 25 mg, 3 times daily PRN lamoTRIgine (LAMICTAL) 200 mg, Daily QUEtiapine XR (SEROQUEL XR) 200 mg, Nightly sertraline (ZOLOFT) 100 mg, Daily ALLERGIES No Known Allergies PROBLEMS Active Ambulatory Problems Diagnosis Date Noted Insomnia 10/09/2023 Mild persistent asthma (HCC) 10/09/2023 Obesity (BMI 30-39.9) 10/09/2023 LGSIL on Pap smear of cervix 10/09/2023 Bipolar II disorder (HCC) 10/09/2023 Anxiety with depression 10/09/2023 Subacute cough 10/09/2023 Resolved Ambulatory Problems Diagnosis Date Noted No Resolved Ambulatory Problems Past Medical History: Diagnosis Date Abnormal uterine bleeding (AUB) Borderline personality disorder (HCC) Cervical high risk HPV (human papillomavirus) test positive Dysfunctional uterine bleeding Encounter for cervical smear to confirm findings of recent normal smear following initial abnormal smear Endometriosis Family history of breast cancer Hair loss Increased heart rate Screen for sexually transmitted diseases Trichimoniasis 04/24/2023 Well woman exam HISTORY PAST MEDICAL HISTORY SOCIAL HISTORY Past Medical History: Diagnosis Date Abnormal uterine bleeding (AUB) Anxiety with depression 10/09/2023 Improvement in anxiety/panic attacks. Bipolar II disorder (HCC) 10/09/2023 Doing well. Saw Psych last month, her lamotrigine,Zoloft and Seroquel were all increased. She thinks increased dose helped her a lot. Her mood is stable, better. Borderline personality disorder (HCC) Cervical high risk HPV (human papillomavirus) test positive Dysfunctional uterine bleeding Encounter for cervical smear to confirm findings of recent normal smear following initial abnormal smear Endometriosis Family history of breast cancer Hair loss Increased heart rate Insomnia 10/09/2023 LGSIL on Pap smear of cervix 10/09/2023 Mild persistent asthma (HCC) 10/09/2023 hx of asthma, uses rescue inhaler 1-2 /day when its spring. If not, then she uses may be once a week. Never had PFTS Obesity (BMI 30-39.9) 10/09/2023 Screen for sexually transmitted diseases Trichimoniasis 04/24/2023 Well woman exam Social History Tobacco Use Smoking status: Never Smokeless tobacco: Never Vaping Use Vaping status: Never Used Substance Use Topics Alcohol use: Yes Comment: Occasional alcohol use Drug use: Never FAMILY HISTORY Family History Problem Relation Name Age of Onset Hypertension Mother No Known Problems Father Stroke Sister No Known Problems Maternal Grandmother Anemia Maternal Grandfather Hypertension Paternal Grandfather Heart disease Sibling SURGICAL HISTORY Past Surgical History: Procedure Laterality Date CERVICAL BIOPSY W/ LOOP ELECTRODE EXCISION 07/27/2021 OVARIAN CYST REMOVAL laparoscopy REVIEW OF SYSTEMS Review of Systems: Review of Systems Constitutional: Negative. HENT: Negative. Eyes: Negative. Respiratory: Negative. Cardiovascular: Negative. Gastrointestinal: Negative. Genitourinary: Positive for pelvic pain. I think I may have a cyst on my ovary again. Intermittent right ovarian pain. Musculoskeletal: Negative. Skin: Negative. Neurological: Negative. All other systems reviewed and are negative. Hematological: Negative. Endocrine: Negative. Allergic/Immunologic: Negative. OBJECTIVE Objective: Physical Exam Constitutional: Appearance: Normal appearance. She is well-developed. Genitourinary: Vulva normal. Right Adnexa: tender. Breasts: Breasts are soft. Right: Normal. Left: Normal. Cardiovascular: Rate and Rhythm: Normal rate and regular rhythm. Pulmonary: Effort: Pulmonary effort is normal. Breath sounds: Normal breath sounds. Abdominal: General: Bowel sounds are normal. There is no distension. Palpations: Abdomen is soft. Tenderness: There is no abdominal tenderness. There is no guarding or rebound. Musculoskeletal: General: No swelling. Normal range of motion. Right lower leg: No edema. Left lower leg: No edema. Neurological: Mental Status: She is alert and oriented to person, place, and time. Skin: General: Skin is warm and dry. Psychiatric: Mood and Affect: Mood normal. Behavior: Behavior normal. Vitals and nursing note reviewed. Exam conducted with a physiotherapy practice manager present. Vitals: Estimated body mass index is 37.67 kg/m as calculated from the following: Height as of 04/19/24: 5' 5 . Weight as of this encounter: 226 lb 6.4 oz. BP: 110/70 Patient's last menstrual period was 03/28/2025. ASSESSMENT & PLAN ICD-10-CM 1. Pelvic pain in female R10.2 US Pelvis w/ TV 2. Well woman exam with routine gynecological exam Z01.419 Pap Smear drospirenone-ethinyl estradiol (Ailin, Ocella) 3-0.03 MG tablet 3. control counseling Z30.09 drospirenone-ethinyl estradiol (Ailin, Ocella) 3-0.03 MG tablet Annual Exam: Patient presents today for an annual exam. Patient states she is doing well and has complaints of intermittent pelvic pain with a history of ovarian cyst and cystic rupture. Pap was obtained without difficulty. Orders Placed This Encounter Procedures US Pelvis w/ TV Follow Up: Patient with complaint of intermittent pelvic pain with history of ovarian cyst. Pelvic ultrasound was ordered today and patient is to follow up after ultrasound. Documented by Kirti Frankel NP on behalf of: Bishnu Barraza DO documented in this encounter [facility] History of Present illness Narrative 04-19-2024 Odessa Canales LPN - 04/19/2024 9:00 AM EDT Note Date & Type Note Facility 04-19-2024 History of Presen t illness Narrative Reason for Appointment: Patient ID: Judy Pérez is a 28 y.o. female who presents for Well Women Visit Patient presents today for Annual Exam. MEDICATIONS Current Outpatient Medications Medication Instructions albuterol HFA 90 mcg/act inhaler 2 puffs, Inhalation, Every 6 hours PRN copper (Paragard) IUD 1 each, Intrauterine, Once drospirenone-ethinyl estradiol (Ailin, Ocella) 3-0.03 MG tablet 1 tablet, Oral, Daily fluticasone (Flonase) 50 MCG/ACT nasal spray 2 sprays, Each Nostril, Daily, Shake gently. Before first use, prime pump. After use, clean tip and replace cap. hydrOXYzine pamoate (VISTARIL) 25 mg, Oral, 3 times daily PRN lamoTRIgine (LAMICTAL) 200 mg, Oral, Daily QUEtiapine XR (SEROQUEL XR) 200 mg, Oral, Nightly sertraline (ZOLOFT) 100 mg, Oral, Daily ALLERGIES No Known Allergies PROBLEMS Active Ambulatory Problems Diagnosis Date Noted Insomnia 10/09/2023 Mild persistent asthma ([facility]) 10/09/2023 Obesity (BMI 30-39.9) 10/09/2023 LGSIL on Pap smear of cervix 10/09/2023 Bipolar II disorder ([facility]) 10/09/2023 Anxiety with depression 10/09/2023 Subacute cough 10/09/2023 Resolved Ambulatory Problems Diagnosis Date Noted No Resolved Ambulatory Problems Past Medical History: Diagnosis Date Abnormal uterine bleeding (AUB) Borderline personality disorder ([facility]) Cervical high risk HPV (human papillomavirus) test positive Dysfunctional uterine bleeding Encounter for cervical smear to confirm findings of recent normal smear following initial abnormal smear Endometriosis Family history of breast cancer Hair loss Increased heart rate Screen for sexually transmitted diseases Trichimoniasis 04/24/2023 Well woman exam HISTORY PAST MEDICAL HISTORY SOCIAL HISTORY Past Medical History: Diagnosis Date Abnormal uterine bleeding (AUB) Anxiety with depression 10/09/2023 Improvement in anxiety/panic attacks. Bipolar II disorder ([facility]) 10/09/2023 Doing well. Saw Psych last month, her lamotrigine,Zoloft and Seroquel were all increased. She thinks increased dose helped her a lot. Her mood is stable, better. Borderline personality disorder ([facility]) Cervical high risk HPV (human papillomavirus) test positive Dysfunctional uterine bleeding Encounter for cervical smear to confirm findings of recent normal smear following initial abnormal smear Endometriosis Family history of breast cancer Hair loss Increased heart rate Insomnia 10/09/2023 LGSIL on Pap smear of cervix 10/09/2023 Mild persistent asthma ([facility]) 10/09/2023 hx of asthma, uses rescue inhaler 1-2 /day when its spring. If not, then she uses may be once a week. Never had PFTS Obesity (BMI 30-39.9) 10/09/2023 Screen for sexually transmitted diseases Trichimoniasis 04/24/2023 Well woman exam Social History Tobacco Use Smoking status: Never Smokeless tobacco: Never Vaping Use Vaping status: Never Used Substance Use Topics Alcohol use: Yes Comment: Occasional alcohol use Drug use: Never FAMILY HISTORY Family History Problem Relation Name Age of Onset Hypertension Mother No Known Problems Father Stroke Sister No Known Problems Maternal Grandmother Anemia Maternal Grandfather Hypertension Paternal Grandfather Heart disease Sibling SURGICAL HISTORY Past Surgical History: Procedure Laterality Date CERVICAL BIOPSY W/ LOOP ELECTRODE EXCISION 07/27/2021 OVARIAN CYST REMOVAL laparoscopy REVIEW OF SYSTEMS Review of Systems: Review of Systems All other systems reviewed and are negative. OBJECTIVE Objective: Physical Exam Constitutional: Appearance: Normal appearance. She is well-developed. Genitourinary: Vulva normal. Breasts: Breasts are soft. Right: Normal. Left: Normal. Cardiovascular: Rate and Rhythm: Normal rate and regular rhythm. Pulmonary: Effort: Pulmonary effort is normal. Breath sounds: Normal breath sounds. Abdominal: General: Bowel sounds are normal. There is no distension. Palpations: Abdomen is soft. Tenderness: There is no abdominal tenderness. There is no guarding or rebound. Musculoskeletal: General: No swelling. Normal range of motion. Right lower leg: No edema. Left lower leg: No edema. Neurological: Mental Status: She is alert and oriented to person, place, and time. Skin: General: Skin is warm and dry. Psychiatric: Mood and Affect: Mood normal. Behavior: Behavior normal. Vitals and nursing note reviewed. Exam conducted with a physiotherapy practice manager present. Vitals: Estimated body mass index is 34.91 kg/m as calculated from the following: Height as of this encounter: 5' 5 . Weight as of this encounter: 209 lb 12.8 oz. BP: 120/72 Patient's last menstrual period was 04/01/2024. ASSESSMENT & PLAN ICD-10-CM 1. Well woman exam with routine gynecological exam Z01.419 Pap Smear Annual Exam: Patient presents today for an annual exam. Patient states she is doing well and has no complaints. Pap was obtained without difficulty. No orders of the defined types were placed in this encounter. Follow Up: Patient is to return in one year for annual unless needed otherwise. Documented by Odessa Canales LPN on behalf of: Bishnu Barraza DO documented in this encounter [facility] History of Present illness Narrative 10-09-2023 Alecia Warren NP - 10/09/2023 6:38 PM Sharad Warren NP - 10/09/2023 6:37 PM ANURADHA GUERRERO - 10/09/2023 6:00 PM Sharad Warren NP - 10/09/2023 6:00 PM EST Note Date & Type Note Facility 10-09-2023 History of Presen t illness Narrative Associated Problem(s): Mild persistent asthma (CMS/HCC) Refill inhaler, add medrol dose pack. Start allergy meds as well Fu if not better Associated Problem(s): Subacute cough Fluids, and add tessalon Will also have her start her allergy meds Had sinus infection about 2-4 weeks ago and the cough is still lingering. Pt has tried over the counter cough medication and nothing has been helping. Pt is not coughing up anything. Images from the original note were not included. Judy Pérez is a 28 y.o. female presents with chief complaint of No chief complaint on file. HPI: Started about 4 weeks ago with fever 105, and sinus congestion. Took at home COVID test was negative. Used OTC meds, went away then started with cough. Non productive, no wheeze Cough This is a new problem. The current episode started 1 to 4 weeks ago. The problem has been waxing and waning. The cough is Non-productive. Associated symptoms include chest pain (tightness from coughing). Pertinent negatives include no chills, ear congestion, ear pain, eye redness, fever, headaches, myalgias, rash, rhinorrhea, sore throat, shortness of breath or wheezing. The symptoms are aggravated by lying down. She has tried a beta-agonist inhaler and prescription cough suppressant for the symptoms. The treatment provided mild relief. There is no history of environmental allergies. SUBJECTIVE: MEDICATIONS: Current Outpatient Medications Medication Instructions albuterol HFA 90 mcg/act inhaler 2 puffs, Inhalation, Every 4 hours PRN copper (Paragard) IUD 1 each, Intrauterine, Once drospirenone-ethinyl estradiol (Ailin, Ocella) 3-0.03 MG tablet 1 tablet, Oral, Daily fluticasone (Flonase) 50 MCG/ACT nasal spray 2 sprays, Each Nostril, Daily, Shake gently. Before first use, prime pump. After use, clean tip and replace cap. hydrOXYzine pamoate (VISTARIL) 25 mg, Oral, 3 times daily PRN lamoTRIgine (LAMICTAL) 200 mg, Oral, Daily QUEtiapine XR (SEROQUEL XR) 200 mg, Oral, Nightly sertraline (ZOLOFT) 100 mg, Oral, Daily ALLERGIES: No Known Allergies REVIEW OF SYMPTOMS: Review of Systems Constitutional: Negative for appetite change, chills and fever. HENT: Negative for congestion, ear pain, rhinorrhea and sore throat. Eyes: Negative for pain, discharge, redness and visual disturbance. Respiratory: Positive for cough. Negative for shortness of breath and wheezing. Cardiovascular: Positive for chest pain (tightness from coughing). Negative for palpitations and leg swelling. Gastrointestinal: Negative for abdominal pain, blood in stool, constipation, diarrhea, nausea and vomiting. Genitourinary: Negative for difficulty urinating, dysuria and frequency. Musculoskeletal: Negative for arthralgias, back pain, joint swelling and myalgias. Skin: Negative for rash and wound. Neurological: Negative for dizziness, tremors, seizures, syncope and headaches. Psychiatric/Behavioral: Negative for behavioral problems, self-injury and suicidal ideas. The patient is not nervous/anxious. Hematological: Does not bruise/bleed easily. Endocrine: Negative for polydipsia, polyphagia and polyuria. Allergic/Immunologic: Negative for environmental allergies and food allergies. PAST MEDICAL HISTORY Past Medical History: Diagnosis Date Abnormal uterine bleeding (AUB) Anxiety with depression 10/09/2023 Improvement in anxiety/panic attacks. Bipolar II disorder (CMS/HCC) 10/09/2023 Doing well. Saw Psych last month, her lamotrigine,Zoloft and Seroquel were all increased. She thinks increased dose helped her a lot. Her mood is stable, better. Borderline personality disorder (CMS/HCC) Cervical high risk HPV (human papillomavirus) test positive Dysfunctional uterine bleeding Encounter for cervical smear to confirm findings of recent normal smear following initial abnormal smear Endometriosis Family history of breast cancer Hair loss Increased heart rate Insomnia 10/09/2023 LGSIL on Pap smear of cervix 10/09/2023 Mild persistent asthma (CMS/HCC) 10/09/2023 hx of asthma, uses rescue inhaler 1-2 /day when its spring. If not, then she uses may be once a week. Never had PFTS Obesity (BMI 30-39.9) 10/09/2023 Screen for sexually transmitted diseases Trichimoniasis 04/24/2023 Well woman exam Past Surgical History: Procedure Laterality Date CERVICAL BIOPSY W/ LOOP ELECTRODE EXCISION 07/27/2021 OVARIAN CYST REMOVAL laparoscopy family history includes Anemia in her maternal grandfather; Heart disease in her sibling; Hypertension in her mother and paternal grandfather; No Known Problems in her father and maternal grandmother; Stroke in her sister. OBJECTIVE: Visit Vitals BP 118/80 (BP Location: Left arm, Patient Position: Sitting, BP Cuff Size: Large adult long) Pulse (!) 116 Temp 97.5 F (Temporal) Resp 18 Ht 5' 5 Wt 203 lb 6.4 oz SpO2 97% BMI 33.85 kg/m Smoking Status Never BSA 2.06 m Physical Exam Vitals reviewed. Constitutional: General: She is not in acute distress. Appearance: Normal appearance. HENT: Head: Normocephalic and atraumatic. Right Ear: Tympanic membrane, ear canal and external ear normal. Left Ear: Tympanic membrane, ear canal and external ear normal. Nose: Nose normal. No congestion or rhinorrhea. Mouth/Throat: Mouth: Mucous membranes are moist. Pharynx: No oropharyngeal exudate or posterior oropharyngeal erythema. Eyes: Extraocular Movements: Extraocular movements intact. Conjunctiva/sclera: Conjunctivae normal. Cardiovascular: Rate and Rhythm: Normal rate and regular rhythm. Pulses: Normal pulses. Heart sounds: Normal heart sounds. Pulmonary: Effort: Pulmonary effort is normal. Breath sounds: Normal breath sounds. No wheezing or rhonchi. Abdominal: General: Bowel sounds are normal. There is no distension. Palpations: Abdomen is soft. There is no mass. Tenderness: There is no abdominal tenderness. Musculoskeletal: General: Normal range of motion. Cervical back: Neck supple. Right lower leg: No edema. Left lower leg: No edema. Lymphadenopathy: Cervical: No cervical adenopathy. Skin: General: Skin is warm and dry. Capillary Refill: Capillary refill takes 2 to 3 seconds. Findings: No rash. Neurological: General: No focal deficit present. Mental Status: She is alert and oriented to person, place, and time. Psychiatric: Mood and Affect: Mood normal. Behavior: Behavior normal. Thought Content: Thought content normal. Judgment: Judgment normal. ASSESSMENT AND PLAN: No follow-ups on file. Problem List Items Addressed This Visit Mild persistent asthma (CMS/HCC) - Primary Refill inhaler, add medrol dose pack. Start allergy meds as well Fu if not better Relevant Medications methylPREDNISolone (Medrol Dospak) 4 MG tablets albuterol HFA 90 mcg/act inhaler Obesity (BMI 30-39.9) Subacute cough Fluids, and add tessalon Will also have her start her allergy meds Relevant Medications benzonatate (Tessalon Perles) 100 MG capsule documented in this encounter [facility] Evaluation note Note Date & Type Note Facility Evaluation note Diagnosis Mild persistent asthma, unspecified whether complicated (CMS/HCC)- Primary Obesity (BMI 30-39.9) Subacute cough documented in this encounter [facility] Evaluation note Note Date & Type Note Facility Evaluation note Diagnosis Well woman exam with routine gynecological exam Routine gynecological examination documented in this encounter [facility] Evaluation note Note Date & Type Note Facility Evaluation note Diagnosis Onset Date Resolution Acute sinusitis acute October 2:14pm [facility] Work Phone: Evaluation note Note Date & Type Note Facility Evaluation note Diagnosis Mild persistent asthma, unspecified whether complicated (HCC)- Primary Obesity (BMI 30-39.9) Subacute cough Pelvic pain in female- Primary Unspecified symptom associated with female genital organs Well woman exam with routine gynecological exam Routine gynecological examination control counseling documented in this encounter [facility] Summary Purpose Family History No Family History Records FoundNo Family History Records FoundNo Family History Records Found Advance Directives Advance Directive Response Recorded Date/ Time Advance Directives No November 10 2:12pm Chief Complaint and Reason for Visit Chief Complaint Admit Date Cough November 10, 2024 2:1 4pm Reason for Visit Admit Date Acute sinusitis November 10, 2024 2:1 4pm Additional Source Comments INFORMATION SOURCE (unrecogn ized section and content) DATE CREATED AUTHOR 11/18/2022 [facility] DATE CREATED AUTHOR AUTHOR'S ORGANIZ ATION 04/20/2024 [facility] EPIC DATE CREATED AUTHOR AUTHOR'S ORGANIZ ATION 02/05/2025 [facility] Teams (unrecognized sec tion and content) Plugger Relationship Specialty Start Date End Date Shaikh Vazquez MD [address] [place] [id number] PCP - General Internal Medicine 10/08/23 Plugger Relationship Specialty Start Date End Date Shaikh Vazquez MD [address] [place] [id number] PCP - General Internal Medicine 10/08/23 Plugger Relationship Specialty Start Date End Date Shaikh Vazquez [place] [address] [place] [id number] PCP - General Internal Medicine 10/08/23 Plugger Relationship Specialty Start Date End Date Shaikh Vazquez MD [address] [place] [id number] PCP - General Internal Medicine 10/08/23 Plugger Relationship Specialty Start Date End Date Shaikh Vazquez MD [address] [place] [id number] PCP - General Internal Medicine 10/08/23 Team Status: Active Member Role Status Dates PHYSICIAN NO FAMILY Primary Care Provider Active Team Status: Inactive Member Role Status Dates Abi Tomas APRN Attending Provider Active Start: November 10, 2024 End: November 10, 2024 PHYSICIAN NO FAMILY Primary Care Provider Active Start: November 10, 2024 End: November 10, 2024 Plugger Relationship Specialty Start Date End Date Kaushik Mendoza MD [address] [place] [id number] PCP - [facility] 05/25/24 Unallocated, [place] Provider, [address] [place] [address] PCP - General [facility] 09/02/24 Plugger Relationship Specialty Start Date End Date Kaushik Mendoza MD [address] [place] [phone] PCP - [facility] 05/25/24 Unallocated, [facility] Provider[facility] [address] [place] [address] PCP - General Family Medicine 09/02/24 Reason for Visit (unrecogniz ed section and content) Reason Comments [facility] Visit Goals (unrecognized section and content) Goals may be documented in a n alternate section FOR RECORDS PERTAINING TO PATIENTS WHO ARE OR HAVE BEEN ENROLLED IN A CHEMICAL DEPENDENCY/SUBSTANCEABUSE PROGRAM, SOME INFORMATION MAY BE OMITTED. This clinical summary was aggregated from multiple sources. Caution should be exercised in using it in the provision of clinical care. This summary normalizes information from multiple sources, and as a consequence, information in this document may materially change the coding, format and clinical context of patient data. In addition, data may be omitted in some cases. CLINICAL DECISIONS SHOULD BE BASED ON THE PRIMARY CLINICAL RECORDS. [facility] [employer] provides no warranty or guarantee of the accuracy or completeness of information in this document.
[2025-04-30 13:14] LABS: Age Gdln ACOG Testing Note (.); IGP, rfx Aptima HPV ASCU Note (.)
== END 2025-04-27 14:47 | disposition home or self-care (01) ==
LOC: LAB 14:46
PROVIDERS: PCP Internal Medicine; Visit Provider Nurse Practitioner Family
DX: Z01.419 Encounter for gynecological examination (general) (routine) without abnormal findings (principal)
CPT/HCPCS: 88175